=== PATIENT | male | born 1960 | race Asian ===

== ENCOUNTER 2021-07-09 17:48 | Emergency (ER) | payer OTHER, MEDICAID ==
[~2021-07-09] VITALS: Ht 162.6 cm; Wt 63.5 kg
[2021-07-09 17:55] VITALS: BP_SYST 107
[2021-07-09 18:24] LABS: BASOPHILS # (AUTO) 0.2 K/uL (0.0-0.2); EOSINOPHILS # (AUTO) 0.2 K/uL (0.0-0.4); HEMATOCRIT 42.5 % (36-54); HEMOGLOBIN 14.4 g/dL (14.0-18.0); LYMPHOCYTES # (AUTO) 0.6 K/uL (1.0-5.5); LYMPHOCYTES % (AUTO) 9.4 % (20.5-51.5); MEAN CORPUSCULAR HEMOGLOBIN 32 pg (27-31); MEAN CORPUSCULAR HGB CONC 34 % (32-36); MEAN CORPUSCULAR VOLUME 94 fL (79.0-98.0); MONOCYTES # (AUTO) 0.3 K/uL (0.0-1.0); MONOCYTES % (AUTO) 4.6 % (1.7-9.3); NEUTROPHILS # (AUTO) 5.5 K/uL (1.8-7.7); PLATELET COUNT (AUTO) 197 K/uL (130-430); RED BLOOD CELL COUNT(AUTO) 4.51 MIL/uL (4.2-6.2); WHITE BLOOD COUNT (AUTO) 6.9 K/uL (4.8-10.8)
[2021-07-09 18:36] LABS: ANION GAP 8 (5-15); CALCIUM 9.3 mg/dL (8.4-11.0); CHLORIDE 102 mmol/L (98-107); CREATININE 0.76 mg/dL (0.55-1.30); GLUCOSE 116 mg/dL (70-99); POTASSIUM 3.8 mmol/L (3.5-5.1); SODIUM SERUM 137 mmol/L (136-145); UREA NITROGEN, BLOOD 19 mg/dL (8-21)
[2021-07-09 18:40] LABS: GFR AFRICAN AMERICAN 135 mL/min (>90)
[2021-07-09 18:45] LABS: ALANINE AMINOTRANSFERASE 12 U/L (12-78); ALBUMIN 3.7 g/dL (3.4-4.8); ASPARTATE AMINOTRANSFERASE 17 U/L (10-37); TOTAL BILIRUBIN 0.1 mg/dL (0.0-1.0)
[2021-07-09 18:51] LABS: ALCOHOL, BLOOD < 3 mg/dL (<10)
[2021-07-09 19:19] LABS: BARBITURATE, URINE NEGATIVE (NEG <=200); BENZODIAZEPINE, URINE NEGATIVE (NEG <=150); CANNABINOID, URINE NEGATIVE (NEG <=50); COCAINE, URINE NEGATIVE (NEG <=150); METHAMPHETAMINES SCREEN,URINE NEGATIVE (NEG <=500); OPIATE, URINE NEGATIVE (NEG <=100); PHENCYCLIDINE SCREEN,URINE NEGATIVE (NEG <=25); UR TRICYCLIC ANTIDEPRESSANTS POSITIVE (NEG <=300); URINE AMPHETAMINE NEGATIVE (NEG <=500); URINE METHADONE NEGATIVE (NEG <=200); URINE OXYCODONE SCREEN NEGATIVE (NEG <=100); URINE PROPOXYPHENE SCREEN NEGATIVE (NEG <=300)
[2021-07-10 00:30] VITALS: BP_SYST 137
== END 2021-07-10 00:30 | disposition home or self-care (01) ==
LOC: SED 17:48
DX: T50.905A Adverse effect of unspecified drugs, medicaments and biological substances, initial encounter (principal); F17.200 Nicotine dependence, unspecified, uncomplicated
CPT/HCPCS: 36415; 70450; 71045; 76376; 80053; 80307; 83880; 84484; 85025; 93005; 99285; G0482

== ENCOUNTER 2022-05-26 10:25 | Emergency (ER) | payer OTHER, MEDICAID ==
[~2022-05-26] VITALS: Ht 162.6 cm; Wt 61.2 kg
[2022-05-26 10:44] VITALS: BP_SYST 100
[2022-05-26] MEDS ORDERED: VALA10002 PO (10:48)
[2022-05-26] MEDS ORDERED: LACEYEO OP (10:48)
[2022-05-26] MEDS ORDERED: PRED50TA PO (10:48)
--- NOTE | 2022-05-26 10:50 | NUR ---
Patient to ER bed 2 to gown for evaluation. Side rails up. Report given to BRITNI SANDRA.
--- NOTE | 2022-05-26 11:00 | NUR ---
ER at bedside examining patient.
[2022-05-26 12:33] VITALS: BP_SYST 123
--- NOTE | 2022-05-26 12:53 | NUR ---
PT SITTING UP IN BED AWAITING FOR TRANSPORTATION IN STABLE CONDITION
--- NOTE | 2022-05-26 14:16 | NUR ---
SBAR TO JAIMIE REGARDING PT RETURNING TO STATION [facility]
--- NOTE | 2022-05-26 14:17 | NUR ---
Patient given written and verbal discharge instructions and verbalizes understanding. ER MD discussed with patient the results and treatment provided. Patient in stable condition. Rx of given. Patient educated on pain management and to follow up with PMD. Pain Scale []. Opportunity for questions provided and answered. Medication side effect fact sheet provided.
== END 2022-05-26 14:17 | disposition home or self-care (01) ==
LOC: SED 10:25
DX: G51.0 Bell's palsy (principal); R47.81 Slurred speech; I10 Essential (primary) hypertension; Z88.5 Allergy status to narcotic agent; Z88.6 Allergy status to analgesic agent; Z79.899 Other long term (current) drug therapy
CPT/HCPCS: 70450-TC; 76376; 99284